=== PATIENT | male | born 1970 | race Caucasian/White ===

== ENCOUNTER 2017-10-26 12:34 | Day surgery (SDC) | payer BC, OTHER ==
[2017-10-26] MEDS ORDERED: IV LACTATED RINGERS SOLUTION 1,000 ML BAG IV ONE (12:35)
[2017-10-26] MEDS ORDERED: LIDOCAINE HCL 2% 20 ML VIAL MC ONE (12:35)
[2017-10-26] MEDS ORDERED: PROPOFOL 200 MG/20 ML BOTTLE IV ONE (12:35)
[2017-10-26 13:22] LABS: BASOPHILS % (AUTO) 0.6 % (0.0-2.0); EOSINOPHILS # (AUTO) 0.4 K/uL (0.0-0.7); EOSINOPHILS % (AUTO) 5.6 % (0.0-7.0); HEMATOCRIT 42.8 % (36.7-47.1); HEMOGLOBIN 14.5 g/dL (12.5-16.3); LYMPHOCYTES # (AUTO) 1.4 K/uL (20.0-40.0); LYMPHOCYTES % (AUTO) 20.4 % (20.5-51.5); MEAN CORPUSCULAR HEMOGLOBIN 29.4 uug (23.8-33.4); MEAN CORPUSCULAR HGB CONC 34 g/dL (32.5-36.3); MEAN CORPUSCULAR VOLUME 86.7 fL (73.0-96.2); MONOCYTES # (AUTO) 0.6 K/uL (2.0-10.0); NEUTROPHILS # (AUTO) 4.5 K/uL (1.8-8.9); NEUTROPHILS % (AUTO) 65.4 % (38.5-71.5); PLATELET COUNT (AUTO) 324 K/uL (152-348); RED BLOOD CELL COUNT(AUTO) 4.93 MIL/uL (4.06-5.63)
[2017-10-26 13:33] LABS: BILIRUBIN,TOTAL 0.7 mg/dL (0.2-1.0); CREATININE 0.9 mg/dL (0.6-1.3); TOTAL PROTEIN, SERUM 8.4 g/dL (6.4-8.2)
[2017-10-26 13:41] LABS: THYROID STIMULATING HORMONE 1.168 mIU/mL (0.358-3.740)
[2017-10-26 13:42] LABS: POTASSIUM 3.8 mmol/L (3.5-5.1)
[2017-10-26 14:19] LABS: *BILIRUBIN,URIN NEGATIVE (NEGATIVE); *BLOOD, URINE Trace-lysed (NEGATIVE); *CLARITY,URINE CLEAR (CLEAR); *COLOR,URINE YELLOW (YELLOW); *KETONES,URINE 1+ (NEGATIVE); *PROTEIN,URINE NEGATIVE (NEGATIVE); *UROBILINOGEN,URINE 0.2 E.U./dl (NORMAL); LEUKOCYTE ESTERASE ,URINE NEGATIVE (NEGATIVE); NITRITE, URINE NEGATIVE (NEGATIVE); UGLUCOSE NEGATIVE (NEGATIVE)
[2017-10-26 14:32] LABS: MUCUS,URINE MANY /LPF (0-FEW); WBC,URINE 0-3 /HPF (0-3)
[2017-10-26] MEDS ORDERED: PROPOFOL 200 MG/20 ML BOTTLE ONE (14:50)
[2017-10-27 10:11] LABS: AFP, TUMOR MARKER 2.5 ng/mL (0.0-8.3); CANCER AG, 125 7.9 U/mL (Not Estab.); CARBOHYDRATE ANTIGEN, 19-9 33 U/mL (0-35)
[2017-10-27 13:06] LABS: HEPATITIS A AB, IgM Negative (Negative); HEPATITIS B SURFACE AB Non Reactive (.); HEPATITIS B SURFACE AG Negative (Negative)
[2017-10-28 08:06] LABS: HEPATITIS Be ANTIGEN Negative (Negative)
[2017-10-28 13:06] LABS: ANTI-MITOCHONDRIAL AB 5.6 Units (0.0-20.0)
== END 2017-10-26 16:02 | disposition home or self-care (01) ==
LOC: DS 12:34
PROVIDERS: ATTEND Internal Medicine Gastroenterology
DX: K51.90 Ulcerative colitis, unspecified, without complications (principal); K64.8 Other hemorrhoids
CPT/HCPCS: 36415; 71045; 82105; 82378; 83550; 83690; 84443; 85025; 85730; 86038; 86235; 86301; 86705; 86706; 86709; 86803; 87340; 87350; 87806; 93005; A4217; A4663; J3490; J7120